=== PATIENT | male | born 1945 | race Caucasian/White ===

== ENCOUNTER → 2022-12-24 | Outpatient (CLI) | payer OTHER, SELFPAY ==
--- NOTE | 2022-12-24 08:19 | ECHOCS_ITS ---
Reason For Study: CAD/ASHD Procedure This was a 2D Doppler, Color Flow transthoracic echocardiogram. The study was technically difficult. Contrast injection was performed. Exam performed in department. Left Ventricle Normal LV size. Left ventricular systolic function is normal. The estimated ejection fraction is 65 %. Stage 1 diastolic dysfunction. No regional wall motion abnormalities noted. Right Ventricle Normal RV size. Normal systolic function. Atria Normal left atrium. Normal right atrium. Aortic Valve Trisinus/trileaflet aortic valve. Mild focal aortic valve calcification. Great Vessels Normal aortic root. The pulmonary artery is normal size. Normal inferior vena cava. Pericardium/Pleural No pericardial effusion. Medication 22 gauge I.V. with prn adaptor inserted into right arm. Diluted definity 1.5ml given slow IV push to enhance endocardial definition. MMode/2D Measurements & Calculations LVIDd: 4.2 cm IVSd: 0.98 cm Ao root diam: 3.3 cm LVIDs: 2.5 cm LVPWd: 1.2 cm FS: 40.1 % LAV(MOD-bp): 46.2 ml SV(MOD-sp4): 70.5 ml LVAd ap4: 33.6 cm2 LAV(MOD-bp) Indexed: 23.1 ml/m2 LVLd ap4: 8.1 cm LAV(MOD-sp2): 43.1 ml EDV(MOD-sp4): 110.8 ml LAV(MOD-sp4): 43.4 ml EDV(sp4-el): 118.3 ml LVAs ap4: 17.6 cm2 LVLs ap4: 6.2 cm ESV(MOD-sp4): 40.3 ml ESV(sp4-el): 42.0 ml EF(MOD-sp4): 63.7 % EF(sp4-el): 64.5 % SV(sp4-el): 76.3 ml LA dimension(2D): 4.1 cm LA A4 area: 16.8 cm2 TAPSE: 2.5 cm RA A4 area: 15.3 cm2 Time Measurements MV dec time: 0.25 sec Doppler Measurements & Calculations MV E max jose: 92.0 cm/sec Lat Peak E' Jose: 8.2 cm/sec Med Peak E' Jose: 7.7 cm/sec MV A max jose: 86.1 cm/sec E/E' lat: 11.2 E/E' med: 11.9 MV E/A: 1.1 MV V2 max: 107.0 cm/sec Ao V2 max: 212.0 cm/sec MV max P.6 mmHg MV dec slope: 364.1 cm/sec2 Ao max P.0 mmHg MV V2 mean: 59.5 cm/sec Ao V2 mean: 137.9 cm/sec MV mean P.7 mmHg Ao mean P.9 mmHg MV V2 VTI: 45.1 cm Ao V2 VTI: 49.1 cm AV (velocity ratio): 0.62 LV V1 max: 123.7 cm/sec PA V2 max: 100.2 cm/sec LV V1 max P.1 mmHg PA V2 mean: 72.0 cm/sec LV V1 mean P.1 mmHg LV V1 mean: 80.6 cm/sec LV V1 VTI: 30.3 cm ECHO/Echo Complete W/ Contrast Interpretation Summary Normal LV size. Left ventricular systolic function is normal. The estimated ejection fraction is 65 %. Stage 1 diastolic dysfunction. Contrast injection was performed. Ordering Physician: Wing Wen Referring Physician: Wing Wen Performed By: Kriss Covington R[facility]
== END | disposition home or self-care (01) ==
LOC: CVS 08:19
PROVIDERS: Referring Provider Chiropractor; Visit Provider Chiropractor
DX: I25.10 Atherosclerotic heart disease of native coronary artery without angina pectoris (principal)
CPT/HCPCS: 93306; Q9957; A4216; C8929